=== PATIENT | female | born 1990 | race Two or more races ===

== ENCOUNTER 2023-11-12 18:16 | Emergency (ER) | payer MEDICAID, OTHER ==
[~2023-11-12] VITALS: Ht 165.1 cm; Wt 76.1 kg
[2023-11-12] MEDS: CLINDAMYCIN 600MG IV 50 ML IV ONE (01:38)
[2023-11-12 19:53] LABS: Urine Bacteria FEW /hpf (None Seen); Urine Blood Negative /uL (Negative); Urine Clarity Clear (Clear); Urine Color Yellow (Yellow); Urine Mucus FEW (None Seen); Urine Protein, UAD TRACE (Negative); Urine Specific Gravity 1.027 (1.001-1.035); Urine Urobilinogen 2 mg/dL (Negative); Urine WBC 3 /hpf (0 - 5); Urine pH 5.5 (5.0-9.0)
[2023-11-12 21:15] LABS: COVID19 ANTIGEN SOFIA FIA NEGATIVE (NEGATIVE)
[2023-11-12 21:16] LABS: Rapid Influenza A Negative (Negative); Rapid Influenza B Negative (Negative)
[2023-11-12 21:55] LABS: Basophils # (auto) 0.1 10 ^3/uL (0-0.2); Eosinophils # (auto) 0 10 ^3/uL (0-0.8); Eosinophils % (auto) 0.1 % (0.0-7.0); Monocytes # (auto) 0.9 10 ^3/uL (0-1.3)
[2023-11-12 21:57] LABS: Basophils % (auto) 0.4 % (0.0-2.0); Hematocrit 42.2 % (36.0-46.0); Hemoglobin 15.5 g/dL (12.2-16.2); Lymphocytes % (auto) 5.4 % (10.0-50.0); Mean Corpuscular Hemoglobin 32.9 pg (28.0-32.0); Mean Corpuscular Volume 89.6 fL (80.0-100.0); Monocytes % (auto) 5.2 % (0.0-12.0); Neutrophils % (auto) 88.9 % (37.0-80.0); Platelet Count (auto) 504 10^3/uL (140-450); Red Blood Cells 4.71 10^6/uL (4.0-5.20); Red Cell Distribution Width 12.8 % (11.8-14.3)
[2023-11-12 21:58] LABS: Mean Corpuscular Hgb Conc. 36.7 g/dL (32.0-36.0)
[2023-11-12] MEDS ORDERED: CLIN1CAP70 PO (22:48)
[2023-11-12] MEDS ORDERED: CEPH500C PO (22:48)
[2023-11-12] MEDS ORDERED: ACET500T58 PO (22:48)
[2023-11-12] MEDS: ACETAMINOPHEN 325 MG TAB PO ONE (23:19)
[2023-11-13] MEDS: cefTRIAXone 1GM/50ML D5W 50 ML IV ONE (00:38)
[2023-11-13] MEDS: SODIUM CHLORIDE 0.9% 1,000 ML IV ONE (00:38)
[2023-11-13 02:34] VITALS: BP 95/65; PULSE 79; RESP 18; TEMP 98.6; O2SAT 98
== END 2023-11-13 02:38 | disposition home or self-care (01) ==
LOC: ER 18:16
DX: L03.811 Cellulitis of head [any part, except face] (principal); T78.40XA Allergy, unspecified, initial encounter; Z20.822 Contact with and (suspected) exposure to COVID-19; Z90.49 Acquired absence of other specified parts of digestive tract; X58.XXXA Exposure to other specified factors, initial encounter
CPT/HCPCS: 36415; 81001; 85025; 87426; 87804; 96365; 96367; 99284; J0696; J3490; J7030